=== PATIENT | male | born 1990 | race Caucasian/White ===

== ENCOUNTER 2016-03-19 00:21 | Emergency (ER) | payer OTHER | END 2016-03-19 01:39 | disposition home or self-care (01) | DX: R41.0 Disorientation, unspecified (principal); W19.XXXA Unspecified fall, initial encounter; F17.200 Nicotine dependence, unspecified, uncomplicated ==

== ENCOUNTER 2018-12-01 09:02 | Emergency (ER) | payer OTHER ==
--- NOTE | 2018-12-01 10:50 | ED Physician Documentation ---
PD HPI ABD PAIN - Stated complaint Stated Complaint: RT LOWER ABD PX - Chief complaint Chief Complaint: Abd Pain - History obtained from History obtained from: Patient - History of Present Illness Timing - onset: How many weeks ago (1) Timing - duration: Weeks (1) Timing - details: Abrupt onset, Still present Quality: Cramping, Aching, Pain Location: RLQ Radiation: Lower back Improved by: No: Eating, Laying still, BM Worsened by: Moving, Palpation. No: Eating Associated symptoms: Nausea, Vomiting (the first day, but not subsequently), Diarrhea (has had loose stools this past week, without noted mcous nor blood.). No: Fever, Dysuria, Hematuria Similar symptoms before: Has not had sx before Review of Systems Constitutional: denies: Fever, Chills Nose: denies: Rhinorrhea / runny nose, Congestion Throat: denies: Sore throat Respiratory: denies: Cough GI: reports: Abdominal Pain, Nausea, Vomiting, Diarrhea (loost movements few daily). denies: Abdominal Swelling, Constipation, Hematemesis, Bloody / black stool : denies: Dysuria, Frequency, Discharge Skin: denies: Rash, Lesions Musculoskeletal: denies: Neck pain, Back pain PD PAST MEDICAL HISTORY - Past Medical History Past Medical History: No Musculoskeletal: Chronic back pain - Past Surgical History Past Surgical History: No - Present Medications Home Medications: Ambulatory Orders Medication Instructions Recorded Confirmed Hydrocodone/Acetaminophen [[place] 1 each PO Q6H PRN #20 tablet 12/01/18 5-325 Tablet] Ondansetron Odt [Zofran] 4 mg TL Q6H PRN #10 tablet 12/01/18 dexAMETHasone [Decadron] 4 mg PO DAILY #5 tablet 12/01/18 - Allergies Allergies/Adverse Reactions: Allergies Allergy/AdvReac Type Severity Reaction Status Date / Time No Known Drug Allergies Allergy Verified 03/19/16 00:30 - Social History Does the pt smoke?: Yes Smoking Status: Current some day smoker Does the pt drink ETOH?: Yes Does the pt have substance abuse?: No - Immunizations Immunizations are current?: Yes PD ED PE NORMAL - Vitals Vital signs reviewed: Yes - General General: Alert and oriented X 3, Well developed/nourished - HEENT HEENT: Pharynx benign - Neck Neck: Supple, no meningeal sign, No adenopathy - Cardiac Cardiac: RRR, No murmur - Respiratory Respiratory: Clear bilaterally - Abdomen Abdomen: Normal bowel sounds, Soft, Non distended, No organomegaly, Other (tender RLQ with local guarding and some local percussion tenderness. No referred tenderness. No rebound. ) - Back Back: No CVA TTP - Derm Derm: Normal color, Warm and dry, No rash - Extremities Extremities: No tenderness to palpate, No edema, No calf tenderness / cord Results - Vitals Vitals: Vital Signs - 24 hr 12/01/18 12/01/18 12/01/18 09:18 12:20 14:24 Temperature 37 C 37.1 C Heart Rate 93 89 87 Respiratory 18 20 16 Rate Blood Pressure 176/113 H 168/115 H 164/110 H O2 Saturation 96 96 96 12/01/18 14:33 Temperature Heart Rate 88 Respiratory 16 Rate Blood Pressure 154/107 H O2 Saturation 97 Oxygen O2 Source Room air - Labs Labs: Laboratory Tests 12/01/18 12/01/18 11:20 11:20 WBC 8.9 RBC 5.40 Hgb 16.7 Hct 50.0 MCV 92.6 MCH 30.9 MCHC 33.4 RDW 13.2 Plt Count 401 MPV 10.3 Neut # (Auto) 6.0 Lymph # (Auto) 2.2 [place] # (Auto) 0.5 Eos # (Auto) 0.2 Baso # (Auto) 0.1 Absolute Nucleated RBC 0.00 Nucleated RBC % 0.0 Sodium 139 Potassium 4.4 Chloride 103 Carbon Dioxide 26 Anion Gap 10.0 BUN 8 Creatinine 0.8 Estimated GFR (MDRD) 117 Glucose 110 H Calcium 8.9 Total Bilirubin 0.6 AST 42 ALT 68 H Alkaline Phosphatase 94 Total Protein 7.7 Albumin 4.4 Globulin 3.3 Albumin/Globulin Ratio 1.3 Lipase 26 - Rads (name of study) abd CT Radiology: Prelim report reviewed (no ureteral stones; has renal stone without hydro. Appendix is normal. Area of right inflammation c/w epiploic appendagitis. ), See rad report PD MEDICAL DECISION MAKING - ED course Complexity details: reviewed results (appendix normal. Rad report Dx epiploic appendigitis), considered differential (has pain RLQ and need to eval for appendix, divertic, stone, other concernes. ), d/w patient Departure - Departure Disposition: Home, Self Care Clinical Impression: Lower abdominal pain, Epiploic appendagitis Condition: Stable Record reviewed to determine appropriate education?: Yes Follow-Up: [facility] [Provider Group] Wilmer Vásquez MD [Provider Admit Priv/Credential] - Prescriptions: dexAMETHasone [Decadron] 4 mg PO DAILY #5 tablet Hydrocodone/Acetaminophen [[place] 5-325 Tablet] 1 each PO Q6H PRN #20 tablet PRN Reason: Pain Ondansetron Odt [Zofran] 4 mg TL Q6H PRN #10 tablet PRN Reason: Nausea / Vomiting Comments: There is an localized area of inflammation of part of the mesentery called epiploic appendagitis. Typically this will create some inflammation as the tissue is injured, (it is caused by a twisting of the supporting structure causing lack of blood supply to that small area of the omentum). Commonly the pain is a week or 2 and decreases. Anti-inflammatories and pain medicine will help. Follow-up with your primary care in the next several days. If the pain has not improved with further treatment and time, the next potential step would be surgery to excise the injured tissue. The surgeons typically prefer to see if he gets better on its own in appropriate timeframe. Forms: Activity restrictions Discharge Date/Time: 12/01/18 14:36
[2018-12-01] MEDS ORDERED: SODIUM CHLORIDE 0.9% 1,000 ML IV ONE (11:18)
[2018-12-01] MEDS ORDERED: ONDANSETRON 4 MG/2 ML VIAL IVP STA (11:18)
[2018-12-01] MEDS ORDERED: MORPHINE 10 MG/ML VIAL IVP STA (11:18)
[2018-12-01] MEDS ORDERED: IOVERSOL 320 100 ML VIAL IVP ONE ×2 (11:33→12:38)
[2018-12-01 11:47] LABS: BASOPHILS # (AUTO) 0.1 10^3/uL (0.0-0.1); BASOPHILS % (AUTO) 0.8 %; EOSINOPHILS # (AUTO) 0.2 10^3/uL (0.0-0.7); EOSINOPHILS % (AUTO) 2.3 %; HGB - HEMOGLOBIN 16.7 g/dL (14.0-18.0); LYMPHOCYTES # (AUTO) 2.2 10^3/uL (1.5-3.5); MEAN CORPUSCULAR HEMOGLOBIN 30.9 pg (27.0-31.0); MEAN CORPUSCULAR HGB CONC 33.4 g/dL (32.0-36.0); MEAN CORPUSCULAR VOLUME 92.6 fL (80.0-94.0); MEAN PLATELET VOLUME 10.3 fL (7.4-11.4); MONOCYTES # (AUTO) 0.5 10^3/uL (0.0-1.0); MONOCYTES % (AUTO) 5.7 %; NEUTROPHILS % (AUTO) 66.8 %; PLT - PLATELET COUNT 401 10^3/uL (130-450); RED CELL DISTRIBUTION WIDTH 13.2 % (12.0-15.0); WHITE BLOOD COUNT 8.9 x10^3/uL (4.8-10.8)
[2018-12-01 11:54] LABS: ALBUMIN 4.4 g/dL (3.2-5.5); ALBUMIN/GLOBULIN RATIO 1.3 (1.0-2.2); BILIRUBIN,TOTAL 0.6 mg/dL (0.2-1.0); CALCIUM 8.9 mg/dL (8.5-10.3); CREATININE 0.8 mg/dL (0.6-1.2); TOTAL PROTEIN 7.7 g/dL (6.7-8.2)
--- NOTE | 2018-12-01 13:19 | CT Report ---
Reason: RLQ pain for several days Procedure Date: 12/01/2018 Accession Number: [id number] / [id number] Procedure: CT - Abdomen/Pelvis W CPT Code: FULL RESULT: EXAM: CT ABDOMEN AND PELVIS EXAM DATE: 12/01/2018 12:36 PM. CLINICAL HISTORY: RLQ pain for several days. COMPARISONS: None. TECHNIQUE: Routine helical CT imaging was performed through the abdomen and pelvis. IV contrast: OPTI 320 100ML. Enteric contrast: No. Reconstructions: Coronal and sagittal. In accordance with CT protocol optimization, one or more of the following dose reduction techniques were utilized for this exam: automated exposure control, adjustment of mA and/or KV based on patient size, or use of iterative reconstructive technique. FINDINGS: Lung Bases: Unremarkable. Liver: Normal. No masses. Gallbladder/Bile Ducts: Unremarkable. Spleen: Normal. Pancreas: Normal. Adrenal Glands: Normal. Kidneys: There is a horseshoe kidney. There is a 2 mm nonobstructing kidney stone in the kidney to the right of midline. No ureter calculus. Peritoneal Cavity/Bowel: Normal. No free fluid, free air or adenopathy. No masses or acute inflammatory process. The appendix is well visualized and normal. Pelvic Organs: Urinary bladder is empty. In the pelvis, there is a circular area of mesenteric fat stranding anterior to the sigmoid colon, series 3 image 68 which has features suspicious for minimal to mild epiploic appendagitis. Vasculature: No aneurysms or other significant abnormality. Bones: No significant abnormality. Other: None. IMPRESSION: 1. Suspicious for minimal to mild epiploic appendagitis in the pelvis, sigmoid colon. 2. Tiny 2 mm nonobstructing "right" Kidney stone, with a horseshoe kidney. 3. Otherwise negative examination. A normal appendix is seen. RADIA
[2018-12-01] MEDS ORDERED: DEXAMETHASONE 10 MG/ML VIAL IVP STA (13:52)
[2018-12-01] MEDS ORDERED: HYDROmorphone 1 MG/ML CARPUJECT IVP STA (13:52)
[2018-12-01] MEDS: KETOROLAC 30 MG/ML VIAL IVP STA (14:16)
[2018-12-01 14:34] VITALS: BP 154/107
== END 2018-12-01 14:36 | disposition home or self-care (01) ==
LOC: ED 09:02
DX: K63.89 Other specified diseases of intestine (principal); N20.0 Calculus of kidney; Q63.1 Lobulated, fused and horseshoe kidney; F17.200 Nicotine dependence, unspecified, uncomplicated
CPT/HCPCS: 36415; 74177; 80053; 83690; 85025; 96361; 96374; 96375; 99284; 99285; J1170; Q9967; 81001; 81003; 87086

== ENCOUNTER 2019-08-23 23:04 | Emergency (ER) | payer OTHER ==
--- NOTE | 2019-08-23 23:14 | ED Physician Documentation ---
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 he admits to drinking alcohol tonight and walking into traffic and was brought in by NELI involuntarily. Patient admits to suicidal thoughts and behavior with a plan to walk into traffic to end his life.) Review of Systems Constitutional: reports: Reviewed and negative Eyes: reports: Reviewed and negative Ears: reports: Reviewed and negative Nose: reports: Reviewed and negative Throat: reports: Reviewed and negative Cardiac: reports: Reviewed and negative Respiratory: reports: Reviewed and negative GI: reports: Reviewed and negative : reports: Reviewed and negative Skin: reports: Reviewed and negative Musculoskeletal: reports: Reviewed and negative Neurologic: reports: Reviewed and negative Psychiatric: reports: Depressed, Suicidal Endocrine: reports: Reviewed and negative Immunocompromised: reports: Reviewed and negative PD PAST MEDICAL HISTORY - Present Medications Home Medications: Ambulatory Orders Medication Instructions Recorded Confirmed Hydrocodone/Acetaminophen [[place] 1 each PO Q6H PRN #20 tablet 12/01/18 5-325 Tablet] Ondansetron Odt [Zofran] 4 mg TL Q6H PRN #10 tablet 12/01/18 dexAMETHasone [Decadron] 4 mg PO DAILY #5 tablet 12/01/18 Bupropion HCl [Bupropion Xl] 300 mg PO DAILY 08/24/19 08/24/19 Clonidine HCl [Clonidine HCl ER] 0.1 mg PO TID 08/24/19 08/24/19 Fluvoxamine Maleate [Fluvoxamine 150 mg PO DAILY 08/24/19 08/24/19 Maleate ER] Prazosin HCl 2 mg PO BID 08/24/19 08/24/19 - Allergies Allergies/Adverse Reactions: Allergies Allergy/AdvReac Type Severity Reaction Status Date / Time tramadol AdvReac Unknown Verified 08/24/19 06:42 PD ED PE NORMAL - Vitals Vital signs reviewed: Yes - General General: Alert and oriented X 3, No acute distress, Well developed/nourished - HEENT HEENT: PERRL - Neck Neck: Supple, no meningeal sign - Cardiac Cardiac: RRR, No murmur - Respiratory Respiratory: Clear bilaterally - Abdomen Abdomen: Normal bowel sounds, Soft, Non tender, Non distended - Derm Derm: Warm and dry - Extremities Extremities: No deformity - Neuro Neuro: Alert and oriented X 3, standpipe tender 2-12 intact, No motor deficit, No sensory deficit, Normal speech - Psych Psych: Other (depressed flat affect.) Results - Vitals Vitals: Vital Signs - 24 hr 08/23/19 08/24/19 08/24/19 23:05 01:50 05:57 Temperature 36.9 C 37.1 C 37.0 C Heart Rate 88 106 H 92 Respiratory 16 16 16 Rate Blood Pressure 158/111 H 127/96 H 149/109 H O2 Saturation 97 97 99 Oxygen O2 Source Room air - Labs Labs: Laboratory Tests 08/23/19 08/23/19 08/23/19 23:05 23:50 23:50 WBC 9.6 RBC 5.15 Hgb 15.5 Hct 45.6 MCV 88.5 MCH 30.1 MCHC 34.0 RDW 13.8 Plt Count 365 MPV 10.5 Neut # (Auto) 5.7 Lymph # (Auto) 3.1 [place] # (Auto) 0.5 Eos # (Auto) 0.1 Baso # (Auto) 0.1 Absolute Nucleated RBC 0.00 Nucleated RBC % 0.0 Sodium 139 Potassium 3.7 Chloride 107 Carbon Dioxide 22 Anion Gap 10.0 BUN 10 Creatinine 0.7 Estimated GFR (MDRD) 136 Glucose 110 H Calcium 8.9 Total Bilirubin < 0.2 L AST 24 ALT 32 Alkaline Phosphatase 91 Total Protein 8.0 Albumin 4.5 Globulin 3.5 Albumin/Globulin Ratio 1.3 Lipase 42 TSH Urine Color YELLOW Urine Clarity CLEAR Urine pH 5.5 Ur Specific [place] <=1.005 Urine Protein NEGATIVE Urine Glucose (UA) NEGATIVE Urine Ketones NEGATIVE Urine Occult Blood NEGATIVE Urine Nitrite NEGATIVE Urine Bilirubin NEGATIVE Urine Urobilinogen 0.2 (NORMAL) Ur Leukocyte Esterase NEGATIVE Ur Microscopic Review NOT INDICATED Urine Culture Comments NOT INDICATED Salicylates < 6.0 Urine Opiates Screen NEGATIVE Ur Oxycodone Screen NEGATIVE Urine Methadone Screen NEGATIVE Ur Propoxyphene Screen NEGATIVE Acetaminophen < 10 L Ur Barbiturates Screen NEGATIVE Ur Tricyclics Screen NEGATIVE Ur Phencyclidine Scrn NEGATIVE Ur Amphetamine Screen NEGATIVE U Methamphetamines Scrn NEGATIVE U Benzodiazepines Scrn NEGATIVE Urine Cocaine Screen NEGATIVE U Cannabinoids Screen NEGATIVE Ethyl Alcohol 186.5 07/12/20 07/13/20 07/13/20 23:50 02:40 05:10 WBC RBC Hgb Hct MCV MCH MCHC RDW Plt Count MPV Neut # (Auto) Lymph # (Auto) [place] # (Auto) Eos # (Auto) Baso # (Auto) Absolute Nucleated RBC Nucleated RBC % Sodium Potassium Chloride Carbon Dioxide Anion Gap BUN Creatinine Estimated GFR (MDRD) Glucose Calcium Total Bilirubin AST ALT Alkaline Phosphatase Total Protein Albumin Globulin Albumin/Globulin Ratio Lipase TSH 1.78 Urine Color Urine Clarity Urine pH Ur Specific [place] Urine Protein Urine Glucose (UA) Urine Ketones Urine Occult Blood Urine Nitrite Urine Bilirubin Urine Urobilinogen Ur Leukocyte Esterase Ur Microscopic Review Urine Culture Comments Salicylates Urine Opiates Screen Ur Oxycodone Screen Urine Methadone Screen Ur Propoxyphene Screen Acetaminophen Ur Barbiturates Screen Ur Tricyclics Screen Ur Phencyclidine Scrn Ur Amphetamine Screen U Methamphetamines Scrn U Benzodiazepines Scrn Urine Cocaine Screen U Cannabinoids Screen Ethyl Alcohol 93.5 16.9 PD MEDICAL DECISION MAKING - ED course Complexity details: reviewed results, re-evaluated patient (06:52 patient sober, involuntary, awaiting evaluation by [facility].), considered differential (depression, alcohol abuse. plan is for medical clearance and [facility] evaluation.), d/w patient, d/w content management consultant, other (patient signed out at shift change to dr. haily jj.) Departure - Departure Clinical Impression: Depression Qualifiers: Depression Type: unspecified Qualified Code(s): F32.9 - Major depressive disorder, single episode, unspecified Alcohol intoxication Qualifiers: Complication of substance-induced condition: with unspecified complication Qualified Code(s): F10.929 - Alcohol use, unspecified with intoxication, unspecified Condition: Stable
[2019-08-23 23:47] LABS: MUDS CUTOFF CONCENTRATIONS CUTOFF CONC BELOW:
[2019-08-23 23:52] LABS: BILIRUBIN,URINE NEGATIVE (NEGATIVE); GLUCOSE, URINE (UA) NEGATIVE (NEGATIVE); KETONES,URINE (UA) NEGATIVE (NEGATIVE); LEUKOCYTE ESTERASE, URINE NEGATIVE (NEGATIVE); NITRITE,URINE NEGATIVE (NEGATIVE); OCCULT BLOOD,URINE NEGATIVE (NEGATIVE); PH,URINE 5.5 PH (5.0-7.5); PROTEIN,URINE NEGATIVE (NEGATIVE); UROBILINOGEN,URINE 0.2 (NORMAL) E.U./dL (NORMAL)
[2019-08-23 23:58] LABS: CLARITY,URINE CLEAR (CLEAR)
[2019-08-24 00:03] LABS: AMPHETAMINE SCREEN,URINE NEGATIVE (NEGATIVE); BENZODIAZEPINES SCREEN, URINE NEGATIVE (NEGATIVE); COCAINE SCREEN URINE NEGATIVE (NEGATIVE); METHADONE SCREEN, URINE NEGATIVE (NEGATIVE); METHAMPHETAMINES SCREEN, URINE NEGATIVE (NEGATIVE); OPIATE SCREEN, URINE NEGATIVE (NEGATIVE); OXYCODONE SCREEN, URINE NEGATIVE (NEGATIVE); PROPOXYPHENE SCREEN, URINE NEGATIVE (NEGATIVE); TRICYCLIC ANTIDEPRESSANT,URINE NEGATIVE (NEGATIVE)
[2019-08-24 00:04] LABS: BASOPHILS # (AUTO) 0.1 10^3/uL (0.0-0.1); BASOPHILS % (AUTO) 0.7 %; EOSINOPHILS # (AUTO) 0.1 10^3/uL (0.0-0.7); EOSINOPHILS % (AUTO) 1.5 %; HGB - HEMOGLOBIN 15.5 g/dL (14.0-18.0); LYMPHOCYTES # (AUTO) 3.1 10^3/uL (1.5-3.5); LYMPHOCYTES % (AUTO) 32.6 %; MEAN CORPUSCULAR HEMOGLOBIN 30.1 pg (27.0-31.0); MEAN CORPUSCULAR VOLUME 88.5 fL (80.0-94.0); MEAN PLATELET VOLUME 10.5 fL (7.4-11.4); MONOCYTES # (AUTO) 0.5 10^3/uL (0.0-1.0); MONOCYTES % (AUTO) 4.8 %; NEUTROPHILS # (AUTO) 5.7 10^3/uL (1.5-6.6); PLT - PLATELET COUNT 365 10^3/uL (130-450); RED BLOOD COUNT 5.15 10^6/uL (4.70-6.10); RED CELL DISTRIBUTION WIDTH 13.8 % (12.0-15.0); WHITE BLOOD COUNT 9.6 x10^3/uL (4.8-10.8)
[2019-08-24] MEDS ORDERED: NICOTINE 21 MG PATCH TOP STA (00:16)
[2019-08-24 00:18] LABS: ACETAMINOPHEN < 10 ug/mL (10-30); ALBUMIN 4.5 g/dL (3.2-5.5); ALBUMIN/GLOBULIN RATIO 1.3 (1.0-2.2); ALKALINE PHOSPHATASE 91 IU/L (42-121); ALT ALANINE AMINOTRANSFERASE 32 IU/L (10-60); AST ASPARTATE AMINOTRANSFERASE 24 IU/L (10-42); BILIRUBIN,TOTAL < 0.2 mg/dL (0.2-1.0); BUN - BLOOD UREA NITROGEN 10 mg/dL (6-20); CALCIUM 8.9 mg/dL (8.5-10.3); CARBON DIOXIDE - CO2 22 mmol/L (21-32); CHLORIDE 107 mmol/L (101-111); CREATININE 0.7 mg/dL (0.6-1.2); GLUCOSE 110 mg/dL (70-100); LIPASE 42 U/L (22-51); SALICYLATE < 6.0 mg/dL; SODIUM 139 mmol/L (135-145)
[2019-08-24] MEDS ORDERED: IBUPROFEN 800 MG TABLET PO STA (05:57)
[2019-08-24] MEDS ORDERED: FAMOTIDINE 20 MG TABLET PO STA (05:57)
[2019-08-24] MEDS ORDERED: IBUPROFEN 600 MG TABLET PO STA (12:03)
[2019-08-24] MEDS ORDERED: LORazepam 1 MG TABLET PO STA (12:03)
--- NOTE | 2019-08-24 15:29 | ED Physician Documentation ---
ED Addendum - Addendum Addendum: 08/24/19 15:26The patient has remained stable here in the emergency department. He has had some of his command with him through part of the day. He did complain of some neck ache and backache in the muscles related to a fall last night. CORBIN Mata saw the patient and talked with him. She felt he did not need involuntary treatment. She initially was working on secure detox for dual diagnosis since he does have alcoholism as well as depression. However that seemed to fall through without space available or such. She talked with the patient's command and then [facility] and arranged for a admission/transfer to there. Initially they were requesting a COVID test but th en changed when they found that hours was not a rapid test and instead would do a rapid test through their ER there. Diagnoses: Generalized depression Alcohol intoxication and dependence Suicidal ideation Disposition the patient will be transferred to psychiatric facility [facility] by BLS ground transport.
[2019-08-24] MEDS ORDERED: ACETAMINOPHEN 325 MG TABLET PO STA (18:30)
[2019-08-24 18:40] VITALS: BP 157/117
== END 2019-08-24 18:50 ==
LOC: MERGE 23:04 → ED 23:04
DX: F32.9 Major depressive disorder, single episode, unspecified (principal); R45.851 Suicidal ideations; F10.229 Alcohol dependence with intoxication, unspecified
CPT/HCPCS: 36415; 80320; 80329; 81003; 83690; 99283; 99285; A9270; J8499; 80053; 80306; 80307; 81001; 84443; 85025; 87086